=== PATIENT | female | born 1940 | race Caucasian/White ===

== ENCOUNTER 2017-09-12 09:19 | Outpatient (CLI) | payer MEDICARE, OTHER ==
[2017-09-12 09:41] LABS: BASOPHILS % 1.1 (0.0-1.5); MEAN CORPUSCULAR VOLUME 92.4 fl (80.0-100.0); MONOCYTES % 4.7 % (0.0-11.0); NEUTROPHILS # 4.5 # k/uL (1.4-7.7)
== END 2017-09-12 09:20 ==
LOC: LAB 09:19
PROVIDERS: ATTEND Internal Medicine
DX: I70.213 Atherosclerosis of native arteries of extremities with intermittent claudication, bilateral legs (principal)
CPT/HCPCS: 36415; 85025

== ENCOUNTER 2017-11-03 10:32 | Outpatient (CLI) | payer MEDICARE, OTHER ==
[2017-11-03 10:54] LABS: BASOPHILS % 0.7 (0.0-1.5); EOSINOPHILS % 6.3 % (0.0-6.8); MEAN CORPUSCULAR HEMOGLOBIN 29.8 pg (28.0-34.0); MEAN CORPUSCULAR VOLUME 96.2 fl (80.0-100.0); MONOCYTES % 5.7 % (0.0-11.0)
== END 2017-11-03 10:33 ==
LOC: LAB 10:32
PROVIDERS: ATTEND Internal Medicine
DX: I73.9 Peripheral vascular disease, unspecified (principal)
CPT/HCPCS: 36415; 85025

== ENCOUNTER 2018-08-27 11:17 | Outpatient (CLI) | payer MEDICARE, OTHER ==
[2018-08-27 11:31] LABS: MEAN CORPUSCULAR HEMOGLOBIN 28.6 pg (28.0-34.0)
[2018-08-27 11:32] LABS: BASOPHILS % 0.5 (0.0-1.5); EOSINOPHILS % 7.9 % (0.0-6.8); MONOCYTES % 7.1 % (0.0-11.0); NEUTROPHILS # 2.6 # k/uL (1.4-7.7)
[2018-08-27 11:59] LABS: APPEARANCE,URINE CLEAR (CLEAR)
[2018-08-27 12:00] LABS: COLOR,URINE YELLOW (YELLOW); OCCULT BLOOD,URINE NEGATIVE (NEGATIVE); PH URINE 6.5 (5.0 - 8.0); UROBILINOGEN URINE 0.2 Eu (0.2-1.0)
== END 2018-08-27 11:30 ==
LOC: LAB 11:17
PROVIDERS: ATTEND Internal Medicine
DX: D64.9 Anemia, unspecified (principal); N39.0 Urinary tract infection, site not specified
CPT/HCPCS: 36415; 81002; 85025